=== PATIENT | male | born 1965 | race Caucasian/White ===

== ENCOUNTER 2017-04-03 11:45 | Inpatient (IN) | payer OTHER ==
[2017-04-03 12:11] VITALS: BMI 27.4
--- NOTE | 2017-04-03 13:24 | HP ---
COWS - Scale Resting Pulse: 0= [place] 80 or Below Sweatin= Chills/Flushing Restless Observation: 3= Extraneous Movement Pupil Size: 0= Normal to Room Light Bone or Joint Aches: 4=Acute Joint/Muscle Pain Runny Nose/ Eye Tearin= Runny Nose/Eyes GI Upset > 30mins: 2= Nausea/Diarrhea (NAUSEA) Tremor Observation: 1= Tremor [place], Not Seen Yawning Observation: 2= >3x During Session Anxiety or Irritability: 2=Irritable/Anxious Goose Flesh Skin: 0=Smooth Skin COWS Score: 17 Admission ROS S - [facility] Chief Complaint: DETOX TX FOR HEROIN DEPENDENC. Allergies/Adverse Reactions: Allergies Allergy/AdvReac Type Severity Reaction Status Date / Time No Known Allergies Allergy Verified 04/03/17 12:26 History of Present Illness: 51 Y/O H/M WITH A HX OF HEROIN DEPENDENCE SEEKING DETOX TX. FIRST TIME HERE. Exam Limitations: No Limitations - Ebola screening Have you traveled outside of the country in the last 21 days: No Have you had contact with anyone from an Ebola affected area: No Have you been sick,other than usual withdrawal symptoms: No Do you have a fever: No - Review of Systems Constitutional: Chills, Night Sweats, Changes in sleep EENT: reports: Blurred Vision (WEARS GLASSES), Tearing, Nose Congestion Respiratory: reports: No Symptoms reported Cardiac: reports: Lightheadedness GI: reports: Constipated, Nausea, Poor Fluid Intake : reports: No Symptoms Reported Musculoskeletal: reports: Joint Pain, Muscle Pain Integumentary: reports: Bruising (BOTH FOREARMS IVD INJ. SITES), Lesions (HX PSIAROSIS), Rash Neuro: reports: Headache (HX MIGRAINE HEADACHES), Tremors, Dizziness Endocrine: reports: No Symptoms Reported Hematology: reports: No Symptoms Reported Psychiatric: reports: Orientated x3, Anxious, Depressed Other Systems: Reviewed and Negative Patient History - Patient Medical History Hx Anemia: No Hx Asthma: No Hx Chronic Obstructive Pulmonary Disease (COPD): No Hx Cardiac Disorders: No Hx Hypertension: Yes (ON MED) HX Cerebrovascular Accident: No Hx Seizures: No Hx Diabetes: No Hx Gastrointestinal Disorders: Yes (HX GASTRITIS-OMEPRAZOLE 20 MG DAILY) Hx Genitourinary Disorders: No Hx Sexually Transmitted Disorders: No Hx Renal Disease (ESRD): No Hx Thyroid Disease: No Hx Human Immunodeficiency Virus (HIV): No (NEGATIVE HX) Hx Hepatitis C: Yes (TREATED) Hx Depression: Yes (ON MED) Hx Suicide Attempt: No (DENIES) Hx Schizophrenia: No - Patient Surgical History Past Surgical History: Yes Hx Appendectomy: Yes (as child) Hx Cholecystectomy: Yes (2014) Hx Orthopedic Surgery: Yes (fx rt arm age 12) Anesthesia Reaction: No - PPD History Previous Implant?: Yes Documented Results: Negative w/o proof Implanted On Prior [facility] Admission?: No PPD to be Administered?: Yes - Reproductive History Patient is a Female of Child Bearing Age (11 -55 yrs old): No (MALE) Patient : (N/A) - Smoking Cessation Smoking history: Current every day smoker Have you smoked in the past 12 months: Yes Aproximately how many cigarettes per day: 5 Hx Chewing Tobacco Use: No Initiated information on smoking cessation: Yes 'Breaking Loose' booklet given: 04/03/17 - Substance & Tx. History Hx Alcohol Use: No (DENIES) Hx Substance Use: Yes (HEROIN/COCAINE/MARIJUANA) Substance Use Type: Cocaine, Heroin, Marijuana Hx Substance Use Treatment: Yes (LAST TX AT [facility] DETOX) - Substances Abused Heroin Route: Injection Frequency: Daily Amount used: 6 bags Age of first use: 29 Date of Last Use: 04/03/17 Cocaine Route: Injection Frequency: 1-3 times last 30 days Amount used: DIME Age of first use: 28 Date of Last Use: 03/31/17 Marijuana/Hashish Route: Smoking Frequency: 1-3 times last 30 days (2X/MONTH) Amount used: 4-5 PUFFS Age of first use: 16 Date of Last Use: 03/31/17 Family Disease History - Family Disease History Family Disease History: Other: Mother (HTN) Admission Physical Exam BHS - Vital Signs Vital Signs: Vital Signs - 24 hr 04/03/17 12:08 Temperature 98.1 F Pulse Rate 75 Respiratory 18 Rate Blood Pressure 142/92 - Physical General Appearance: Yes: Moderate Distress, Irritable, Anxious HEENTM: Yes: EOMI, Normocephalic, OTF, Pharynx Normal Respiratory: Yes: Chest Non-Tender, Lungs Clear, Normal Breath Sounds, No Respiratory Distress Neck: Yes: No masses,lesions,Nodules, Supple, Trachea in good position Breast: Yes: Breast Exam Deferred Cardiology: Yes: Regular Rhythm, Regular Rate, S1, S2 Abdominal: Yes: Normal Bowel Sounds, Non Tender, Soft Genitourinary: Yes: Other (N/C) Back: Yes: Within Normal Limits Musculoskeletal: Yes: full range of Motion, Gait Steady Extremities: Yes: Normal Range of Motion, Non-Tender Neurological: Yes: oil pumper II-XII NML intact, Fully Oriented, Alert, Motor Strength 5/5 Integumentary: Yes: Dry, Warm, Rash (PSORIATIC LESIONS), Track [place]ak (BOTH FOREARMS-NO REDNESS OR SWELLINGS.) Lymphatic: Yes: Within Normal Limits - Diagnostic (1) Opioid dependence with withdrawal Current Visit: Yes Status: Acute (2) Cocaine abuse Current Visit: Yes Status: Acute (3) Marijuana abuse Current Visit: Yes Status: Acute (4) Hypertension Current Visit: Yes Status: Chronic Qualifiers: Hypertension type: essential hypertension Qualified Code(s): I10 - Essential (primary) hypertension (5) History of gastritis Current Visit: Yes Status: Chronic (6) History of hepatitis C Current Visit: Yes Status: Chronic Cleared for Admission [facility] - Detox or Rehab [facility] Level of Care: Medically Managed Detox Regimen/Protocol: Methadone [facility] Breath Alcohol Content Breath Alcohol Content: 0 Urine Drug Screen - Results Drug Screen Negative: No Urine Drug Screen Results: THC-Marijuana, MABEL-Cocaine, OPI-Opiates
[2017-04-03] MEDS ORDERED: hydrOXYzine PAMOATE 25 MG CAPSULE (FP) PO PRN (13:41)
[2017-04-03] MEDS ORDERED: diphenhydrAMINE HCL 50 MG CAPSULE PO PRN (13:41)
[2017-04-03] MEDS ORDERED: MENTHOL/PHENOL 1 EACH UD MM PRN (13:41)
[2017-04-03] MEDS ORDERED: IBUPROFEN 400 MG TABLET (FP) PO PRN (13:41)
[2017-04-03] MEDS ORDERED: MAGNESIUM CITRATE 300 ML BOTTLE PO PRN (13:41)
[2017-04-03] MEDS ORDERED: MAGNESIUM HYDROX 2400MG/30ML ORAL SUSPENSION 30 ML CUP PO PRN (13:41)
[2017-04-03] MEDS ORDERED: P-EPHED 60MG/TRIPROLIDI 2.5MG TABLET PO PRN (13:41)
[2017-04-03] MEDS ORDERED: ACETAMINOPHEN 325 MG TABLET (FP) PO PRN (13:41)
[2017-04-03] MEDS ORDERED: guaiFENesin/D-METHORPHAN HB 10 ML UNIT-DOSE CUPS PO PRN (13:41)
[2017-04-03] MEDS ORDERED: NICOTINE POLACRILEX 2 MG GUM BC PRN (13:41)
[2017-04-03] MEDS ORDERED: LOPERAMIDE HCL 2 MG CAPSULE PO PRN (13:41)
[2017-04-03] MEDS ORDERED: MAG HYDROX/AL HYDROX/SIMETH 30 ML UNIT-DOSE CUP PO PRN (13:41)
[2017-04-03] MEDS ORDERED: METHADONE HCL 10 MG TABLET (FOR DETOX USE ONLY) PO ONE ×2 (15:58→23:00)
[2017-04-03] MEDS: NICOTINE 14 MG/24 HOURS TOPICAL PATCH TD SCH (17:52)
[2017-04-03] MEDS: TAMSULOSIN HCL 0.4 MG CAP.ER.24H (FP) PO SCH (17:53)
[2017-04-03] MEDS: diazePAM 5 MG TABLET PO PRN ×2 (17:53→22:15)
[2017-04-03] MEDS: LISINOPRIL 20 MG TABLET (FP) PO SCH (17:53)
[2017-04-03] MEDS: BETAMETHASONE DIPR 0.05% OINTMENT 15 GM TUBE TP SCH ×2 (18:27→22:15)
[2017-04-03] MEDS ORDERED: THIAMINE HCL 100 MG TABLET (FP) PO SCH (22:00)
[2017-04-03 22:36] LABS: URINE APPEARANCE TURBID; URINE BILIRUBIN NEGATIVE (NEGATIVE); URINE BLOOD NEGATIVE (NEGATIVE); URINE COLOR YELLOW; URINE GLUCOSE (UA) NEGATIVE (NEGATIVE); URINE KETONE NEGATIVE (NEGATIVE); URINE NITRITE POSITIVE (NEGATIVE); URINE UROBILINOGEN NEGATIVE mg/dL (0.2-1.0)
[2017-04-03 22:43] LABS: URINE LEUK ESTERASE 2+ (NEGATIVE); URINE PROTEIN 1+ (NEGATIVE)
[2017-04-03 23:08] LABS: URINE BACTERIA FEW /hpf (NONE SEEN); URINE MUCUS MANY; URINE RBC 28 /hpf (0-3); URINE WBC 682 /hpf (3-5)
[2017-04-04] MEDS: diazePAM 5 MG TABLET PO PRN ×2 (05:12→10:11)
[2017-04-04 09:43] LABS: MCH 30.1 pg (25.7-33.7); MCHC 32.8 g/dl (32.0-35.9); MEAN CELL VOLUME 91.8 fl (80-96); MEAN PLT VOLUME 7.9 fl (7.5-11.1); PLATELET COUNT 255 K/MM3 (134-434); RDW 13.3 % (11.9-15.9); WHITE BLOOD COUNT 14.1 K/mm3 (4.0-10.0)
[2017-04-04 09:48] VITALS: BP 130/79; PULSE 96; TEMP 97.4
[2017-04-04] MEDS ORDERED: METHADONE HCL 10 MG TABLET (FOR DETOX USE ONLY) PO ONE (10:00)
[2017-04-04] MEDS ORDERED: PRENATAL VITAMINS W/ FOLIC ACID TABLET (FP) PO SCH (10:00)
[2017-04-04 10:05] LABS: ALBUMIN 3.6 g/dl (3.4-5.0); ALK PHOS 99 U/L (45-117); ANION GAP 5 (8-16); BILIRUBIN,TOTAL 0.9 mg/dL (0.2-1.0); CALCIUM 9.6 mg/dL (8.5-10.1); CO2 30 mmol/L (21-32); CREATININE 0.7 mg/dL (0.7-1.3); GLUCOSE,RANDOM 79 mg/dL (74-106); SGOT/AST 31 U/L (15-37); SGPT/ALT 36 U/L (12-78); TOT PROT 8.2 g/dl (6.4-8.2)
[2017-04-04] MEDS: BETAMETHASONE DIPR 0.05% OINTMENT 15 GM TUBE TP SCH (10:09)
[2017-04-04] MEDS: LISINOPRIL 20 MG TABLET (FP) PO SCH (10:09)
[2017-04-04] MEDS: NICOTINE 14 MG/24 HOURS TOPICAL PATCH TD SCH (10:09)
[2017-04-04] MEDS: TAMSULOSIN HCL 0.4 MG CAP.ER.24H (FP) PO SCH (10:09)
[2017-04-04 10:23] LABS: SICKLE CELL SCREEN NEGATIVE (NEGATIVE)
--- NOTE | 2017-04-04 10:24 | EKG ---
Test Reason : Blood Pressure : / mmHG Vent. Rate : 088 BPM Atrial Rate : 088 BPM P-R Int : 134 ms QRS Dur : 082 ms QT Int : 356 ms P-R-T Axes : 068 080 038 degrees QTc Int : 430 ms NORMAL SINUS RHYTHM NORMAL ECG NO PREVIOUS ECGS AVAILABLE Confirmed by ЕЛЕНА ORTIZ, ROMEL ([id number]) on 04/04/2017 10:24:06 AM Referred By: Confirmed By:ROMEL CHRISTIANSEN MD
--- NOTE | 2017-04-04 10:33 | PN ---
BHS COWS - Scale Resting Pulse: 1= [place] 81-100 Sweatin= Chills/Flushing Restless Observation: 3= Extraneous Movement Pupil Size: 0= Normal to Room Light Bone or Joint Aches: 4=Acute Joint/Muscle Pain Runny Nose/ Eye Tearin= Runny Nose/Eyes GI Upset > 30mins: 2= Nausea/Diarrhea Tremor Observation of Outstretched Hands: 2= Slight Tremor Visible Yawning Observation: 1= 1-2x During Session Anxiety or Irritability: 2=Irritable/Anxious Goose Flesh Skin: 0=Smooth Skin COWS Score: 18 BHS Progress Note (SOAP) Subjective: ANXIETY,IRRITABILITY,RESTLESSNESS,RUNNY NOSE,SWEATS,DIARRHEA. Objective: 04/04/17 10:29 Vital Signs Temperature 97.4 F L 04/04/17 09:47 Pulse Rate 96 H 04/04/17 09:47 Respiratory Rate 18 04/04/17 09:47 Blood Pressure 130/79 04/04/17 09:47 O2 Sat by Pulse Oximetry (%) Laboratory Last Values WBC 14.1 K/mm3 (4.0-10.0) H 04/04/17 06:00 RBC 4.53 M/mm3 (4.00-5.60) 04/04/17 06:00 Hgb 13.7 GM/dL (11.7-16.9) 04/04/17 06:00 Hct 41.6 % (35.4-49) 04/04/17 06:00 MCV 91.8 fl (80-96) 04/04/17 06:00 MCH 30.1 pg (25.7-33.7) 04/04/17 06:00 MCHC 32.8 g/dl (32.0-35.9) 04/04/17 06:00 RDW 13.3 % (11.9-15.9) 04/04/17 06:00 Plt Count 255 K/MM3 (134-434) 04/04/17 06:00 MPV 7.9 fl (7.5-11.1) 04/04/17 06:00 Sickle Cell Screen Negative (NEGATIVE) 04/04/17 06:00 Sodium 136 mmol/L (136-145) 04/04/17 06:00 Potassium 4.4 mmol/L (3.5-5.1) 04/04/17 06:00 Chloride 101 mmol/L (98-107) 04/04/17 06:00 Carbon Dioxide 30 mmol/L (21-32) 04/04/17 06:00 Anion Gap 5 (8-16) L 04/04/17 06:00 BUN 11 mg/dL (7-18) 04/04/17 06:00 Creatinine 0.7 mg/dL (0.7-1.3) 04/04/17 06:00 Creat Clearance w eGFR > 60 (>60) 04/04/17 06:00 Random Glucose 79 mg/dL (74-106) 04/04/17 06:00 Calcium 9.6 mg/dL (8.5-10.1) 04/04/17 06:00 Total Bilirubin 0.9 mg/dL (0.2-1.0) 04/04/17 06:00 AST 31 U/L (15-37) 04/04/17 06:00 ALT 36 U/L (12-78) 04/04/17 06:00 Alkaline Phosphatase 99 U/L (45-117) 04/04/17 06:00 Total Protein 8.2 g/dl (6.4-8.2) 04/04/17 06:00 Albumin 3.6 g/dl (3.4-5.0) 04/04/17 06:00 Urine Color Yellow 04/03/17 21:15 Urine Appearance Turbid 04/03/17 21:15 Urine pH 7.0 (5.0-8.0) 04/03/17 21:15 Ur Specific [place] 1.015 (1.005-1.025) 04/03/17 21:15 Urine Protein 1+ (NEGATIVE) H 04/03/17 21:15 Urine Glucose (UA) Negative (NEGATIVE) 04/03/17 21:15 Urine Ketones Negative (NEGATIVE) 04/03/17 21:15 Urine Blood Negative (NEGATIVE) 04/03/17 21:15 Urine Nitrite Positive (NEGATIVE) 04/03/17 21:15 Urine Bilirubin Negative (NEGATIVE) 04/03/17 21:15 Urine Urobilinogen Negative mg/dL (0.2-1.0) 04/03/17 21:15 Urine RBC 28 /hpf (0-3) 04/03/17 21:15 Urine WBC 682 /hpf (3-5) 04/03/17 21:15 Ur Epithelial Cells Rare /hpf (FEW) 04/03/17 21:15 Urine Bacteria Few /hpf (NONE SEEN) 04/03/17 21:15 Urine Mucus Many 04/03/17 21:15 LABS NOTED UA ABNORMAL--RBC = 28; WBC= 682; NITRITE (+) HX BPH--ON FLOMAX Assessment: 04/04/17 10:32 WITHDRAWAL SX R/O UTI Plan: CONTINUE DETOX REPEAT UA/UC BACTRIM DS 1 TAB PO BID X 14 DAYS
[2017-04-04] MEDS ORDERED: SULFAMETHOXAZOLE/TRIMETHOPRIM 800MG/160MG D.S. TABLET PO SCH (11:13)
--- NOTE | 2017-04-04 11:49 | CONSULT ---
[facility] Psychiatric Consult - Data Date of interview: 04/04/17 Admission source: [facility] Identifying data: First admission to [facility] for this 51 y/o male seeking detox treatment on for heroin,cocaine and marijuana dependence.Patient is a common-law ,a father of one,domiciled,unemployed and supported on SSI benefits. Substance Abuse History: Discussed with patient in this session.He confirms this report : Smoking Cessation. Smoking history: Current every day smoker. Have you smoked in the past 12 months: Yes. Aproximately how many cigarettes per day: 5. Hx Chewing Tobacco Use: No. Initiated information on smoking cessation: Yes. 'Breaking Loose' booklet given: 04/03/17. - Substance & Tx. History. Hx Alcohol Use: No (DENIES). Hx Substance Use: Yes (HEROIN/COCAINE/ MARIJUANA). Substance Use Type: Cocaine, Heroin, Marijuana. Hx Substance Use Treatment: Yes (LAST TX AT [facility] DETOX). - Substances Abused. * * Heroin. Route: Injection. Frequency: Daily. Amount used: 6 bags. Age of first use: 29. Date of Last Use: 04/03/17. Cocaine. Route: Injection. Frequency: 1-3 times last 30 days. Amount used: DIME. Age of first use: 28. Date of Last Use: 03/31/17. Marijuana/Hashish. Route: Smoking. Frequency: 1-3 times last 30 days (2X/MONTH). Amount used: 4-5 PUFFS. Age of first use: 16. Date of Last Use: 03/31/17 Medical History: Remarkable for hepatitis C,benign prostatic hyperplasia, hypertension,psoriasis and nephrolithiasis. Psychiatric History: Patient admits to past psychiatric hospitalizations at [facility] in [facility].Diagnosed with MDD and Anxiety Disorder.Prescribed xanax,percocet and seroquel 400 mg/hs.Mr Siddiqi states that he gets his psychiatric outpatient services at [facility] OPD clinic.Denies history of suicide attempts. Physical/Sexual Abuse/Trauma History: Patient denies history of abuse.Stressors : current illness of ,lack of support from relatives,financial constraints. Additional Comment: Urine Drug Screen Results: THC-Marijuana, MABEL-Cocaine, OPI- Opiates.Noted. Mental Status Exam - Mental Status Exam Alert and Oriented to: Time, Place, Person Cognitive Function: Good Patient Appearance: Well Groomed (short stature) Mood: Nervous, Anxious Affect: Mood Congruent Patient Behavior: Fatigued, Appropriate, Cooperative Speech Pattern: Clear Voice Loudness: Normal Thought Process: Intact, Goal Oriented Thought Disorder: Not Present Hallucinations: Denies Suicidal Ideation: Denies Homicidal Ideation: Denies Insight/Judgement: Poor Sleep: Poorly, Difficulty falling asleep Appetite: Fair Muscle strength/Tone: Normal Gait/Station: Normal Psychiatric Findings - Problem List ([place] 1, 2,3) (1) Opioid dependence with withdrawal Status: Acute (2) Cocaine dependence Status: Acute (3) Marihuana dependence Status: Acute (4) Nicotine dependence Status: Acute (5) Substance induced mood disorder Status: Acute (6) BPH (benign prostatic hyperplasia) Status: Chronic Qualifiers: Lower urinary tract symptom presence: symptoms present (7) History of gastritis Status: Chronic (8) History of hepatitis C Status: Chronic (9) Hypertension Status: Chronic Qualifiers: Hypertension type: essential hypertension Qualified Code(s): I10 - Essential (primary) hypertension (10) Psoriasis Status: Chronic (11) Insomnia Status: Acute - Initial Treatment Plan Initial Treatment Plan: Psychoeducation.Detoxification in progress.Seroquel 200 mg po hs (reduced for next 24 hrs - patient will be watched for oversedation - titration to 400 mg/hs to follow if good tolerability).Dose verified through telephone contact with [facility] at [phone] : refill (400 mg/hs) picked up on 03/23/17.Side effects/benefits discussed with patient.He agrees with this careplan.NO scripts needed at discharge.
--- NOTE | 2017-04-04 13:12 | DS ---
[facility] Detox Discharge Summary Admission Date: 04/03/17 Discharge Date: 04/04/17 - History Present History: Cannabis Dependence, Cocaine Dependence, Opioid Dependence Additional Comments: PT DECLINED TO CONTINUE WITH DETOX FOR PERSONAL REASONS. PT WAS ENCOURAGED TO FINISH TREATMENT AND ALSO ADDRESS HIS ONGOING URINARY TRACT INFECTION BUT HE DECLINED. HOWEVER, RX BACTRIM DS 1 TAB PO BID X 14 DAYS SENT TO PT'S PHARMACY AND INSTRUCTED PATIENT TO FINISH TREATMENT. ALERT O X 3. NAD. Pertinent Past History: BPH HTN HX KIDNEY INFECTION UTI - Physical Exam Results Vital Signs: Vital Signs Temperature 97.4 F L 04/04/17 09:47 Pulse Rate 96 H 04/04/17 09:47 Respiratory Rate 18 04/04/17 09:47 Blood Pressure 130/79 04/04/17 09:47 O2 Sat by Pulse Oximetry (%) Pertinent Admission Physical Exam Findings: WITHDRAWAL SX Laboratory Last Values WBC 14.1 K/mm3 (4.0-10.0) H 04/04/17 06:00 RBC 4.53 M/mm3 (4.00-5.60) 04/04/17 06:00 Hgb 13.7 GM/dL (11.7-16.9) 04/04/17 06:00 Hct 41.6 % (35.4-49) 04/04/17 06:00 MCV 91.8 fl (80-96) 04/04/17 06:00 MCH 30.1 pg (25.7-33.7) 04/04/17 06:00 MCHC 32.8 g/dl (32.0-35.9) 04/04/17 06:00 RDW 13.3 % (11.9-15.9) 04/04/17 06:00 Plt Count 255 K/MM3 (134-434) 04/04/17 06:00 MPV 7.9 fl (7.5-11.1) 04/04/17 06:00 Sickle Cell Screen Negative (NEGATIVE) 04/04/17 06:00 Sodium 136 mmol/L (136-145) 04/04/17 06:00 Potassium 4.4 mmol/L (3.5-5.1) 04/04/17 06:00 Chloride 101 mmol/L (98-107) 04/04/17 06:00 Carbon Dioxide 30 mmol/L (21-32) 04/04/17 06:00 Anion Gap 5 (8-16) L 04/04/17 06:00 BUN 11 mg/dL (7-18) 04/04/17 06:00 Creatinine 0.7 mg/dL (0.7-1.3) 04/04/17 06:00 Creat Clearance w eGFR > 60 (>60) 04/04/17 06:00 Random Glucose 79 mg/dL (74-106) 04/04/17 06:00 Calcium 9.6 mg/dL (8.5-10.1) 04/04/17 06:00 Total Bilirubin 0.9 mg/dL (0.2-1.0) 04/04/17 06:00 AST 31 U/L (15-37) 04/04/17 06:00 ALT 36 U/L (12-78) 04/04/17 06:00 Alkaline Phosphatase 99 U/L (45-117) 04/04/17 06:00 Total Protein 8.2 g/dl (6.4-8.2) 04/04/17 06:00 Albumin 3.6 g/dl (3.4-5.0) 04/04/17 06:00 Urine Color [place] 04/04/17 12:25 Urine Appearance Turbid 04/04/17 12:25 Urine pH 8.0 (5.0-8.0) 04/04/17 12:25 Ur Specific [place] 1.015 (1.005-1.025) 04/03/17 21:15 Urine Protein 1+ (NEGATIVE) H 04/04/17 12:25 Urine Glucose (UA) Negative (NEGATIVE) 04/04/17 12:25 Urine Ketones Negative (NEGATIVE) 04/04/17 12:25 Urine Blood Negative (NEGATIVE) 04/04/17 12:25 Urine Nitrite Negative (NEGATIVE) 04/04/17 12:25 Urine Bilirubin Negative (NEGATIVE) 04/04/17 12:25 Urine Urobilinogen Negative mg/dL (0.2-1.0) 04/04/17 12:25 Urine RBC 28 /hpf (0-3) 04/03/17 21:15 Urine WBC 682 /hpf (3-5) 04/03/17 21:15 Ur Epithelial Cells Rare /hpf (FEW) 04/03/17 21:15 Urine Bacteria Few /hpf (NONE SEEN) 04/03/17 21:15 Urine Mucus Many 04/03/17 21:15 RPR Titer Nonreactive (NONREACTIVE) 04/04/17 06:00 REPEAT UA;UC SENT BUT PATIENT SIGNED OUT AMA. RX BACTRIM GIVEN AND PT TO FOLLOW UP WITH HIS PMD. - Treatment Hospital Course: Discharged Condition Good - Medication Discharge Medications: Ambulatory Orders Alprazolam 2 mg PO QID PRN 04/03/17 Clobetasol Propionate [Cormax] 50 ml TP DAILY 04/03/17 Halobetasol Prop 0.05% Tp Crm [Ultravate (Nf)] 1 applic TP DAILY 04/03/17 Lisinopril [Prinivil] 20 mg PO DAILY 04/03/17 Omeprazole 20 mg PO DAILY 04/03/17 Oxycodone HCl 30 mg PO QID 04/03/17 Oxycodone HCl/Acetaminophen [Percocet 10-325 mg Tablet] 1 each PO TID 04/03/17 Quetiapine Fumarate [Seroquel -] 400 mg PO HS 04/03/17 Tamsulosin HCl [Flomax -] 0.4 mg PO DAILY 04/03/17 Sulfamethoxazole/Trimethoprim [Bactrim DS -] 1 each PO BID #28 tablet 04/04/17 - Diagnosis (1) Opioid dependence with withdrawal Status: Acute (2) Cocaine abuse Status: Acute (3) Marijuana abuse Status: Acute (4) Hypertension Status: Chronic Qualifiers: Hypertension type: essential hypertension Qualified Code(s): I10 - Essential (primary) hypertension (5) History of gastritis Status: Chronic (6) History of hepatitis C Status: Chronic (7) BPH (benign prostatic hyperplasia) Status: Chronic Qualifiers: Lower urinary tract symptom presence: symptoms present (8) Psoriasis Status: Chronic - AMA Did Patient Leave Against Medical Advice: Yes (AMA)
[2017-04-04 15:04] LABS: URINE APPEARANCE TURBID; URINE BILIRUBIN NEGATIVE (NEGATIVE); URINE BLOOD NEGATIVE (NEGATIVE); URINE COLOR AMBER; URINE GLUCOSE (UA) NEGATIVE (NEGATIVE); URINE KETONE NEGATIVE (NEGATIVE); URINE NITRITE NEGATIVE (NEGATIVE); URINE UROBILINOGEN NEGATIVE mg/dL (0.2-1.0)
[2017-04-04 15:06] LABS: URINE LEUK ESTERASE 3+ (NEGATIVE); URINE PROTEIN 1+ (NEGATIVE)
[2017-04-04 15:26] LABS: URINE RBC 7 /hpf (0-3); URINE WBC 617 /hpf (3-5)
[2017-04-04] MEDS ORDERED: QUEtiapine FUMARATE 200 MG TABLET PO SCH (22:00)
[2017-04-05] MEDS ORDERED: METHADONE HCL 5 MG TABLET (FOR DETOX USE ONLY) PO ONE (10:00)
[2017-04-06] MEDS ORDERED: METHADONE HCL 5 MG TABLET (FOR DETOX USE ONLY) PO ONE (10:00)
[2017-04-07] MEDS ORDERED: METHADONE HCL 10 MG TABLET (FOR DETOX USE ONLY) PO ONE (10:00)
[2017-04-08] MEDS ORDERED: METHADONE HCL 5 MG TABLET (FOR DETOX USE ONLY) PO ONE (06:00)
== END 2017-04-04 12:20 | disposition left against medical advice (07) | DRG 861 ==
LOC: YASAS 11:45 → Y3N 15:24
PROVIDERS: ADMIT Internal Medicine; ATTEND Internal Medicine
PROC: HZ2ZZZZ Detoxification Services for Substance Abuse Treatment (ICD-10-PCS; principal; 2017-04-03)
DX: F17.210 Nicotine dependence, cigarettes, uncomplicated (principal); F11.23 Opioid dependence with withdrawal; F14.20 Cocaine dependence, uncomplicated; F12.20 Cannabis dependence, uncomplicated; F19.24 Other psychoactive substance dependence with psychoactive substance-induced mood disorder; G47.00 Insomnia, unspecified; I10 Essential (primary) hypertension; K29.70 Gastritis, unspecified, without bleeding; B18.2 Chronic viral hepatitis C; N40.0 Benign prostatic hyperplasia without lower urinary tract symptoms; L40.9 Psoriasis, unspecified
CPT/HCPCS: 36415; 80053; 81003; 81015; 85027; 85660; 86593; 93005; 93010